=== PATIENT | female | born 1975 | race Caucasian/White ===

== ENCOUNTER 2017-09-20 09:24 | Outpatient (CLI) | payer OTHER ==
[~2017-09-20] VITALS: Ht 160 cm; Wt 71.3 kg
[2017-09-20 09:40] VITALS: BP 106/67; PULSE 83; RESP 18; Ht 160 cm; Wt 71.3 kg
[2017-09-20] MEDS ORDERED: CALC600T5 PO (09:43)
[2017-09-20] MEDS ORDERED: PREN-19 PO (09:43)
--- NOTE | 2017-09-20 10:04 | RADRPT ---
PROCEDURE: Obstetrical ultrasound for biophysical profile CLINICAL INDICATION: Biophysical profile. . TECHNIQUE: Obstetrical ultrasound of the uterus for biophysical profile. Transabdominal views are obtained. COMPARISON: None FINDINGS: Single intrauterine gestation. Presentation: Cephalic. Placenta: Anterior. No evidence of placental abruption. No evidence of placenta previa. breathing movement = 2/2 tone = 2/2 motion = 2/2 ROGER = 2/2 ROGER = 11.5 cm heart rate: 158 beats per minute IMPRESSION: Single intrauterine gestation. Biophysical profile 07/06 RPTAT: AADD .Jimbo Galindo MD, MD Date Time Electronically viewed and signed by .Jimbo Galindo MD, on 09/20/2017 10:04 .B/
--- NOTE | 2017-09-20 14:04 | TRIAGE ---
OB Triage Datetime Report Generated by CPN: 09/20/2017 14:04 Datetime: 09/20/2017 11:06 Stage of : OB Triage Datetime: 09/20/2017 10:36 Labor Evaluation Frequency: occas Monitor Mode: External Duration (sec)2399: 50-60 Quality: Mild Resting Tone Max: Relaxed Contraction Comments: denies feeling Heart Rate FHR Baseline Rate: 145 Monitor Mode: External US Variability: Moderate 6-25 bpm Accelerations: 10X10 Decelerations: None Category: Category I Pain Assessment Pain Scale: 0 Pain Presence: None/Denies Pain Type: N/A Pain Goal: 3 Pain Relief Measures: Comfort Measures Datetime: 09/20/2017 10:35 Stage of : OB Triage Datetime: 09/20/2017 10:31 Stage of : OB Triage Datetime: 09/20/2017 09:37 Stage of : OB Triage Assessment Type: Triage EGA: 38.4 Maternal Assessment Level of Consciousness: Fully Conscious DTR's/Clonus: DTRs 2+; No Clonus Headache: Denies Blurred Vision: No Respiratory Effort: Unlabored; Regular Rhythm; Equal Expansion Breath Sounds, Left: Clear and Equal Breath Sounds, Right: Clear and Equal Nausea/Vomiting: Denies RUQ Epigastric Pain: Denies Facial Edema: None Temperature Route: Axillary Fall Risk Assessment History of Falling: (0) No Secondary Diagnosis: (0) No Ambulatory Aid: (0) Bedrest/Nurse Assist IV Therapy: (0) No Gait: (0) Normal/Bedrest/Immobile Mental Status: (0) Oriented to Own Ability Fall Score: 0 Fall Risk Score Definition: No Risk: No action required Labor Evaluation Frequency: 0 Monitor Mode: External Resting Tone Max: Relaxed Heart Rate FHR Baseline Rate: 155 Monitor Mode: External US Variability: Moderate 6-25 bpm Decelerations: None Pain Assessment Pain Scale: 0 Pain Presence: None/Denies Pain Goal: 3 Pain Relief Measures: Comfort Measures Datetime: 09/20/2017 09:36 Time of Arrival: 09/20/2017 09:17 Arrived By: Ambulatory Arrived From: Home Chief Complaint: SENT FROM DR OFFICE FOR NST RE: GDM DIET CONTROLLED. DENIES UC'S, BLEEDING OR UC' S Movement: Present Contractions: Denies/Absent Rupture of Membranes: Denies Vaginal Bleeding: None Vaginal Discharge: Denies Recent Sexual Intercouse: Denies Abdominal Trauma: Not Applicable Patient Complaints: None Time Provider Notified: 09/20/2017 11:06 Provider Notified: kenneth Initial Plan: MONITOR, BPP/NST
--- NOTE | 2017-09-20 18:15 | QN ---
Documentation Comment iup 35 weeks gdm vss nst reactive a/p iup 35 weeks [facility] JERONIMO PORTILLO MD Sep 20, 2017 18:15
== END 2017-09-20 11:32 | disposition home or self-care (01) ==
LOC: L-D 09:24 → OBT 09:24
PROVIDERS: ATTEND Obstetrics & Gynecology
DX: O24.419 Gestational diabetes mellitus in pregnancy, unspecified control (principal); Z3A.35 35 weeks gestation of pregnancy
CPT/HCPCS: 76818; 82962; Z7500; G0463

== ENCOUNTER 2017-09-23 08:00 | Inpatient (IN) | payer OTHER ==
[~2017-09-23] VITALS: Ht 157.5 cm; Wt 70.5 kg
[~2017-09-23 08:00] MED LIST: CALC600T5 PO; PREN-19 PO
[2017-09-23 08:35] VITALS: BP 101/50; RESP 20
[2017-09-23] MEDS ORDERED: FER325 PO (08:41)
[2017-09-23] MEDS ORDERED: METHYLERGONOVINE 0.2 MG INJ IM PRN (09:00)
[2017-09-23] MEDS ORDERED: OXYTOCIN 30 UNITS/LR 500 ML IV SCH ×3 (09:00)
[2017-09-23] MEDS ORDERED: BUTORPHANOL 2 MG INJ IV PRN ×2 (09:00)
[2017-09-23] MEDS ORDERED: IBUPROFEN 600 MG TAB PO PRN (09:00)
[2017-09-23] MEDS ORDERED: MISOPROSTOL 200 MCG TAB PR PRN (09:00)
[2017-09-23] MEDS ORDERED: CARBOPROST 250 MCG INJ IM PRN (09:00)
[2017-09-23] MEDS ORDERED: AMPICILLIN 2 GM/NS (PMX) 100 ML IV ONE (09:00)
[2017-09-23] MEDS ORDERED: OXYTOCIN 30 UNITS/LR 500 ML IV PRN (09:00)
[2017-09-23] MEDS ORDERED: LIDOCAINE 1% (MPF) 30 ML INJ INJ PRN (09:00)
[2017-09-23 09:28] VITALS: Ht 157.5 cm; Wt 70.5 kg
[2017-09-23] MEDS: LACTATED RINGER'S 1,000 ML IV SCH ×3 (09:29→23:36)
[2017-09-23] MEDS ORDERED: LACTATED RINGER'S 1,000 ML IV PRN (10:00)
[2017-09-23] MEDS: MISOPROSTOL 25 MCG CAPSULE PO PRN ×2 (10:30→19:17)
--- NOTE | 2017-09-23 10:33 | RADRPT ---
PROCEDURE: US OB. CLINICAL INDICATION: Induction of labor, size and dates TECHNIQUE: Multiple sonographic images of the pelvis were obtained. Transabdominal imaging only w as performed. The images were reviewed on a PACS workstation. COMPARISON: Ultrasound, 09/20/2017 FINDINGS: Single intrauterine gestation. Cephalic presentation. cardiac activity was not assessed on the submitted images. Measurements were made in order to determine age. The results are as follows: BPD = 9.48 cm HC = 34.29 cm AC = 34.17 cm FL = 7.17 cm Gestational age is 38 weeks 2 days and TATI is 10/05/2017 by ultrasound criteria. EFW = 3368 g +/- 505 g (44 %). The placenta is anterior. There is no evidence for an abruption or placenta previa. IMPRESSION: 1. Single intrauterine gestation of approximately 38 weeks 2 days by ultrasound criteria, as above. 2. cardiac activity was not assessed on the submitted images. RPTAT: AAQQ .Bry Kate MD, MD Date Time Electronically viewed and signed by .Bry Kate MD, MD on 09/23/2017 10:33 .R/
[2017-09-23 11:08] LABS: BASOPHILS % 0.3 % (0.0-2.0); EOSINOPHILS % 0.7 % (0.0-7.0); HEMATOCRIT 38.2 % (37.0-47.0); HEMOGLOBIN 12.9 g/dl (12.0-16.0); LYMPHOCYTES # 1.2 10^3/ul (0.8-2.9); LYMPHOCYTES % 20.7 % (15.0-51.0); MEAN CORPUSCULAR HEMOGLOBIN 31.2 pg (29.0-33.0); MEAN CORPUSCULAR HGB CONC 33.8 g/dl (32.0-37.0); MEAN CORPUSCULAR VOLUME 92.3 fl (82.0-101.0); MEAN PLATELET VOLUME 10.1 fl (7.4-10.4); MONOCYTE # 0.5 10^3/ul (0.3-0.9); MONOCYTES % 9.2 % (0.0-11.0); NEUTROPHILS % 68.4 % (39.0-77.0); PLATELET COUNT 240 10^3/UL (140-415); RED BLOOD COUNT 4.14 10^6/ul (4.20-5.40); RED CELL DISTRIBUTION WIDTH 12.8 % (11.5-14.5); WHITE BLOOD COUNT 5.9 10^3/ul (4.8-10.8)
[2017-09-23 11:26] LABS: INR 0.91; PARTIAL THROMBOPLASTIN TIME 27.8 Sec (25.0-35.0); PROTIME 12.2 Sec (12.2-14.2)
[2017-09-23] MEDS ORDERED: MINERAL OIL LIGHT 10 ML VIAL TOP PRN (12:30)
[2017-09-23] MEDS: AMPICILLIN 1 GM/NS (PMX) 50 ML IV SCH ×3 (12:36→21:01)
--- NOTE | 2017-09-23 21:50 | RADRPT ---
PROCEDURE: OB ultrasound CLINICAL INDICATION: . OB ultrasound with evaluation of position TECHNIQUE: Transabdominal sonographic images of the uterus obtained after first trimester, greater than 14 weeks gestation. Single intrauterine gestation present. Evaluation for positi on. COMPARISON: 09/23/2017 FINDINGS: Placenta: anterior without evidence of abruption or previa heart rate: 142 Beats per minute. IMPRESSION: Presentation: Cephalic RPTAT: AADD .Jimbo Galindo MD, MD Date Time Electronically viewed and signed by .Jimbo Galindo MD, MD on 09/23/2017 21:50 .B/
[2017-09-23] MEDS ORDERED: CEFAZOLIN 2 GM/50 ML (PMX) 50 ML IVPB SCH (22:00)
[2017-09-23] MEDS ORDERED: METOCLOPRAMIDE 10 MG INJ IV ONE (23:30)
[2017-09-23] MEDS ORDERED: CITRIC ACID/SODIUM CITRATE 15 ML CUP PO ONE (23:30)
[2017-09-23] MEDS ORDERED: FAMOTIDINE 20 MG INJ IV ONE (23:30)
[2017-09-24] VITALS (7 sets, daily range): BP systolic 94–113; BP diastolic 43–58; PULSE 66–86; RESP 18–21
[2017-09-24] MEDS ORDERED: MISOPROSTOL 200 MCG TAB PR PRN
[2017-09-24] MEDS ORDERED: LANOLIN 7 GM TUBE TOP PRN
[2017-09-24] MEDS ORDERED: METHYLERGONOVINE 0.2 MG TAB PO PRN
[2017-09-24] MEDS ORDERED: METHYLERGONOVINE 0.2 MG INJ IM PRN
[2017-09-24] MEDS ORDERED: OXYTOCIN 30 UNITS/LR 500 ML IV PRN
[2017-09-24] MEDS ORDERED: NA PHOSPHATE/BIPHOS 133 ML ENEMA PR PRN
[2017-09-24] MEDS ORDERED: CARBOPROST 250 MCG INJ IM PRN
--- NOTE | 2017-09-24 00:16 | SIPON ---
Date/Time of Note Date/Time of Note DATE: 09/24/17 TIME: 00:14 Operative Report Preoperative Diagnosis 39 weeks GDM A1 Variable decelerations Diagonal lie Multiparity GBS positive Postoperative Diagnosis Same Operation/Procedure Performed Primary low segment transverse Bilateral salpingectomy Surgeon see signature line assistant principal Dr. Buchanan Anesthesia: spinal Estimated blood loss: other Transfusion Required none Specimen Placenta Grafts/Implants none Complications none LORRIE COLE MD Sep 24, 2017 00:16
[2017-09-24] MEDS ORDERED: FENTAnyl 50 MCG/ML VIAL ONE (00:19)
[2017-09-24] MEDS ORDERED: morphine SULFATE/PF (10 MG/10 ML) INJ ONE (00:20)
[2017-09-24] MEDS ORDERED: ONDANSETRON 4 MG INJ IV PRN ×2 (00:30→02:00)
[2017-09-24] MEDS ORDERED: KETOROLAC 30 MG INJ IV SCH (00:30)
[2017-09-24] MEDS ORDERED: DEXAMETHASONE 4 MG/ML 1 ML INJ ONE (00:35)
[2017-09-24] MEDS ORDERED: PHENYLephrine (100 MCG/ML) 5ML SYG ONE ×2 (01:01→01:16)
--- NOTE | 2017-09-24 01:01 | PREOPHP ---
DATE OF ADMISSION: 09/23/2017 The patient was admitted on 09/23/2017 for induction. HISTORY OF PRESENT ILLNESS: This is a 41-year-old female 3, para 1, abortions 1. The patie nt with an EDC of 09/30/2017. This patient had a previous vaginal delivery in 2010. She developed gestational diabetes in for which I was evaluating her and was referring her to the [facility] to[facility]. She was coming for NSTs and BPPs weekly. The patient was controlled with diet alone, and her blood sugars were mostly hypoglycemic all the time. She was being instructed very strictly on taking many snacks due to hypoglycemia. The patient has been admitted at 39 weeks for induction of labor due to gestational diabetes, diet controlled. She had a history of GBS positive, and she was also signing papers for tubal ligation. This patient had no other problems during the , an d she was admitted today for induction of labor. The presentation was diagonal. Two ultrasounds we re done showing the head down but with a diagonal direction where the head was in the right lower qu adrant. The patient was induced with p.o. Cytotec, and she was kimberly frequently and hea rt tone with variable decelerations were observed during the day and got better, and they started be ing more frequent at this time with loss of sigr-pa-fkfe variability. The patient's pelvic examinat ion did not change during the day even though she was having very frequent contractions which she di d not feel. The presentation was really not even palpable doing the vaginal examination, and she wa s advised for a primary section due to an oblique presentation of the head with varia ble decelerations. During her , the baby was breech presentation most of the time. PAST MEDICAL HISTORY: Healthy. SHE HAD NO ALLERGIES. She had no surgical or medical antecedents. FAMILY HISTORY: Her mother was diabetic and her mother had cancer and multiple births. SOCIAL HISTORY: The patient has no history of smoking, alcohol or drug addiction. PHYSICAL EXAMINATION: VITAL SIGNS: She is 5 feet 2. She started with a weight of 136. At this time, she is 153. The pu lse is 80, respirations 16. Her blood pressure is 90/60. HEAD AND NECK: Normal. CHEST: Clear. HEART: Normal sinus rhythm. LUNGS: Clear. BREASTS: Soft, nontender, no masses. ABDOMEN: Soft with contractions every 2 to 3 minutes and with a diagonal lie with the head of the b alanna being in the right lower quadrant. PELVIC: Closed cervix with 50% effacement, membranes intact and the head of the baby is absolutely nonpalpable nearby. The head is felt in the right lower quadrant. EXTREMITIES: Normal with normal pulses. No edema. Normal reflexes. DIAGNOSES: A 39-week , diagonal lie, variable decelerations, gestational diabetes diet con trolled, group B strep positive and multiparity. PLAN: She is undergoing a primary section and tubal ligation. She was offered a salpingec osorio versus a partial salpingectomy, and she decided to have a complete bilateral salpingectomy. Nabil chandra was advised of the possible risks and possible complications of the procedure with her alternative s and options. Written information was provided. She had no more questions and agreed to go ahead with the procedure with full understanding and no more questions. Dictated By: LORRIE GONZALEZ/SHRAVAN Conf#: [id number] DID#: [id number]
[2017-09-24] MEDS ORDERED: ZOLPIDEM 5 MG TAB PO PRN (02:00)
[2017-09-24] MEDS ORDERED: DIPHENHYDRAMINE 50 MG INJ IV PRN (02:00)
[2017-09-24] MEDS ORDERED: NALOXONE (0.4 MG/ML) INJ IV PRN (02:00)
[2017-09-24] MEDS ORDERED: KETOROLAC 30 MG INJ IV PRN (02:00)
[2017-09-24] MEDS ORDERED: NALBUPHINE HCL (10 MG/1 ML) INJ IV PRN (02:00)
[2017-09-24] MEDS ORDERED: HYDROmorphONE 0.5 MG/0.5 ML SYG IV PRN ×2 (02:00)
--- NOTE | 2017-09-24 02:41 | OPR ---
DATE OF OPERATION: 09/24/2017 PROCEDURE: Primary low segment transverse section. PREOPERATIVE DIAGNOSES: A 39 weeks , gestational diabetes mellitus A1, variable decelerati ons, diagonal lie, multiparity, group B streptococcus positive. OPERATION PERFORMED: Primary low segment transverse section and bilateral salpingectomy. SURGEON: Lorrie Luna MD BOBCAT DRIVER/LABOR: Jose Buchanan MD ANESTHESIOLOGIST: Dr. Berger. ANESTHESIA: Spinal. DESCRIPTION PROCEDURE: The patient was given spinal anesthesia, placed in the supine position. The abdomen was prepped and draped and a Davenport catheter was placed in the bladder. A transverse incisi on was made suprapubically over the midline for about 10 cm in length. The abdomen was opened in la yers without difficulties. The abdominal cavity was reached. The lower uterine segment was identif ied. The Adrian retractor was placed and the bladder flap was made. The uterus was opened in the m idline with a scalpel and the incision was increased laterally on either side for about 3 inches. T he baby's head was delivered after the incision was made and increased laterally on either side for about 3 inches. The baby was suctioned and the cord was clamped and cut. The baby was handed over to the crown ironer operator team. The cord blood was obtained. The placenta was removed. The uterus was swabbed out and closed in 2 layers using #1 Monocryl continuous suture imbedding the first line of s uture and hemostasis was good. Both tubes were removed by applying a ____ from the fimbriated end, all the way up to about 2 cm from the isthmic portion of the tube. The tube was removed and the sut ure was done by a jojknl-bu-munct suture with a 2-0 Vicryl and reinforcement with the same 2-0 Vicry l. This was done in both sides. Both ovaries were normal. The uterus was normal. The abdominal c avity was cleaned out and a piece of Interceed was left on the area of the for prevention of adhesions. The cavity was closed after the sponge counts and instrument counts were correct with a 2-0 Vicryl suture for peritoneum, #0 PDS looped suture for the fascia, 2-0 Vicryl for the subcuta neous tissue, and 3-0 Monocryl subcuticular to the skin. Steri-Strips and Dermabond were used. The patient tolerated the procedure well and left the OR awake and stable. Sponge counts and instrumen t counts were correct and intravenous antibiotics were given for prophylaxis. Dictated By: LORRIE GONZALEZ/SHRAVAN Conf#: [id number] DID#: [id number]
[2017-09-24] MEDS: OXYTOCIN 30 UNITS/LR 500 ML IV SCH (04:00)
[2017-09-24] MEDS: METOCLOPRAMIDE 10 MG TAB PO SCH ×3 (05:34→17:32)
[2017-09-24] MEDS ORDERED: ACCU-CHEK XX SCH (06:00)
[2017-09-24] MEDS: CEFAZOLIN 2 GM/50 ML (PMX) 50 ML IVPB SCH ×3 (06:37→23:05)
[2017-09-24] MEDS: LACTATED RINGER'S 1,000 ML IV SCH ×6 (06:58→22:58)
[2017-09-24] MEDS: ACCU-CHEK XX SCH ×4 (08:25→20:43)
[2017-09-24] MEDS: SENNA/DOCUSATE NA (8.6MG/50MG) TAB PO SCH ×2 (09:00→20:38)
--- NOTE | 2017-09-24 13:47 | PN ---
Date/Time of Note Date/Time of Note DATE: 09/24/17 TIME: 13:46 Assessment/Plan Lines/Catheters IV Catheter Type (from Nrsg): Peripheral IV Subjective 24 Hr Interval Summary Afebrile, feeling good and stable. incision dry. uterus contracted .lochia normal Constitutional: BM, ambulates, flatus, improved, no complaints, urine output Feeding: advancing diet Pain Control: well controlled Detailed Summary Eyes: no complaints ENT: no complaints Respiratory: no complaints Cardiovascular: no complaints Gastrointestinal: no complaints Genitourinary: no complaints Musculoskeletal: no complaints Skin: no complaints Neurologic: no complaints Endocrine: no complaints Lymphatic: no complaints Psychological: nl mood/affect, no complaints Immunologic: no complaints Exam/Review of Systems Vital Signs Vitals Vital Signs Date Time Temp Pulse Resp B/P Pulse Ox O2 Delivery O2 Flow Rate FiO2 09/24/17 12:00 98.9 79 18 94/55 Room Air 09/24/17 03:15 98 Intake and Output 09/23/17 09/23/17 09/24/17 15:00 23:00 07:00 Intake Total 650 ml 350 ml 1825 ml Output Total 900 ml 900 ml 950 ml Balance -250 ml -550 ml 875 ml Exam Constitutional: alert, oriented, well developed Psych: nl mood/affect, no complaints Head: atraumatic, normocephalic Eyes: EOMI, nl conjunctiva, nl lids, nl sclera ENMT: mucosa pink and moist, nl external ears & nose, nl lips & teeth, nl nasal mucosa & septum Neck: non-tender, supple Respiratory: clear to auscultation, normal air movement Cardiovascular: nl pulses, regular rate and rhythm Gastrointestinal: nl liver, spleen, non-tender, soft Musculoskeletal: nl extremities to inspection, nl gait and stance Extremities: normal pulses Neurological: DINKEY ENGINE OPERATOR II-XII intact, nl mental status, nl speech, nl strength Skin: nl turgor, rash or lesions Lymph: nl lymph nodes Results Result Diagram: 09/23/17 0910 LORRIE COLE MD Sep 24, 2017 13:47
[2017-09-24] MEDS ORDERED: BISACODYL (EC) 5 MG TAB PO ONE (14:00)
[2017-09-24] MEDS: KETOROLAC 30 MG INJ IV SCH ×2 (17:31→23:45)
[2017-09-24 23:31] LABS: BASOPHILS % 0.2 % (0.0-2.0); EOSINOPHILS % 0.1 % (0.0-7.0); HEMOGLOBIN 12.7 g/dl (12.0-16.0); LYMPHOCYTES # 0.7 10^3/ul (0.8-2.9); LYMPHOCYTES % 5.9 % (15.0-51.0); MEAN CORPUSCULAR HEMOGLOBIN 31.9 pg (29.0-33.0); MEAN CORPUSCULAR HGB CONC 34.3 g/dl (32.0-37.0); MEAN PLATELET VOLUME 9.6 fl (7.4-10.4); MONOCYTES % 7.8 % (0.0-11.0); NEUTROPHIL # 10.6 10^3/ul (1.6-7.5); NEUTROPHILS % 85.5 % (39.0-77.0); PLATELET COUNT 244 10^3/UL (140-415); RED BLOOD COUNT 3.98 10^6/ul (4.20-5.40); RED CELL DISTRIBUTION WIDTH 12.7 % (11.5-14.5); WHITE BLOOD COUNT 12.4 10^3/ul (4.8-10.8)
[2017-09-25] MEDS: LACTATED RINGER'S 1,000 ML IV SCH
[2017-09-25] MEDS: METOCLOPRAMIDE 10 MG TAB PO SCH ×5 (02:11→23:46)
[2017-09-25 04:00] VITALS: BP 106/57; PULSE 72; RESP 18
[2017-09-25] MEDS: HYDROCODONE/APAP (5/325) TAB PO PRN ×4 (04:52→23:47)
--- NOTE | 2017-09-25 06:41 | PN ---
Date/Time of Note Date/Time of Note DATE: 09/25/17 TIME: 06:39 Assessment/Plan Lines/Catheters IV Catheter Type (from Nrs): Peripheral IV Subjective 24 Hr Interval Summary Feels good Afebrile Breast-feeding Uterus contracted Incision dry Lochia normal Constitutional: BM, ambulates, flatus, improved, no complaints, urine output Feeding: advancing diet Detailed Summary Eyes: no complaints ENT: no complaints Respiratory: no complaints Cardiovascular: no complaints Gastrointestinal: no complaints Genitourinary: no complaints Musculoskeletal: no complaints Skin: no complaints Neurologic: no complaints Endocrine: no complaints Lymphatic: no complaints Psychological: nl mood/affect, no complaints Immunologic: no complaints Exam/Review of Systems Vital Signs Vitals Vital Signs Date Time Temp Pulse Resp B/P Pulse Ox O2 Delivery O2 Flow Rate FiO2 09/25/17 04:00 98.4 72 18 106/57 Room Air 09/24/17 03:15 98 Intake and Output 09/24/17 09/24/17 09/25/17 15:00 23:00 07:00 Intake Total 1305 ml 735 ml 1050 ml Output Total 3000 ml 1700 ml 800 ml Balance -1695 ml -965 ml 250 ml Exam Constitutional: alert, oriented, well developed Psych: nl mood/affect, no complaints Head: atraumatic, normocephalic Eyes: EOMI, nl conjunctiva, nl lids, nl sclera ENMT: mucosa pink and moist, nl external ears & nose, nl lips & teeth, nl nasal mucosa & septum Neck: non-tender, supple Respiratory: clear to auscultation, normal air movement Cardiovascular: nl pulses, regular rate and rhythm Gastrointestinal: nl liver, spleen, non-tender, soft Musculoskeletal: nl extremities to inspection, nl gait and stance Extremities: normal pulses Neurological: DIRECTOR HRIS II-XII intact, nl mental status, nl speech, nl strength Skin: nl turgor, rash or lesions Lymph: nl lymph nodes Results Result Diagram: 09/24/17 2304 LORRIE COLE MD Sep 25, 2017 06:41
[2017-09-25 08:00] VITALS: BP 101/51; PULSE 74; RESP 18
[2017-09-25] MEDS: ACCU-CHEK XX SCH ×4 (08:43→20:43)
[2017-09-25] MEDS ORDERED: INFLUENZA VIRUS VACCINE 0.5 ML SYG IM* ONE (09:00)
[2017-09-25] MEDS: SENNA/DOCUSATE NA (8.6MG/50MG) TAB PO SCH ×2 (09:00→21:00)
[2017-09-25 16:00] VITALS: BP 104/59; PULSE 86; RESP 18
[2017-09-25 20:00] VITALS: BP 108/76; PULSE 96; RESP 20
[2017-09-25] MEDS: IBUPROFEN 800 MG TAB PO SCH (21:46)
[2017-09-26 03:20] VITALS: BP 115/65; PULSE 72; RESP 20
[2017-09-26] MEDS: METOCLOPRAMIDE 10 MG TAB PO SCH ×4 (05:15→23:28)
[2017-09-26] MEDS: HYDROCODONE/APAP (5/325) TAB PO PRN ×3 (05:15→23:28)
[2017-09-26] MEDS: IBUPROFEN 800 MG TAB PO SCH ×3 (05:15→21:03)
[2017-09-26 07:03] LABS: BASOPHILS % 0.3 % (0.0-2.0); EOSINOPHILS # 0.1 10^3/ul (0.0-0.5); EOSINOPHILS % 0.5 % (0.0-7.0); HEMATOCRIT 34.8 % (37.0-47.0); HEMOGLOBIN 11.6 g/dl (12.0-16.0); LYMPHOCYTES % 8.8 % (15.0-51.0); MEAN CORPUSCULAR HGB CONC 33.3 g/dl (32.0-37.0); MEAN PLATELET VOLUME 9.4 fl (7.4-10.4); MONOCYTE # 0.7 10^3/ul (0.3-0.9); MONOCYTES % 5.6 % (0.0-11.0); NEUTROPHIL # 9.7 10^3/ul (1.6-7.5); NEUTROPHILS % 84.2 % (39.0-77.0); PLATELET COUNT 264 10^3/UL (140-415); RED BLOOD COUNT 3.74 10^6/ul (4.20-5.40); RED CELL DISTRIBUTION WIDTH 12.9 % (11.5-14.5); WHITE BLOOD COUNT 11.6 10^3/ul (4.8-10.8)
[2017-09-26] MEDS: ACCU-CHEK XX SCH ×3 (08:25→15:37)
[2017-09-26] MEDS: SENNA/DOCUSATE NA (8.6MG/50MG) TAB PO SCH ×2 (09:00→21:00)
--- NOTE | 2017-09-26 11:38 | QN ---
Documentation Comment pod2 pt doing well vss exam wln a/p pod 2 continue care JERONIMO PORTILLO MD Sep 26, 2017 11:38
[2017-09-26 16:30] VITALS: BP 100/54; PULSE 85; RESP 18
[2017-09-26 20:00] VITALS: BP 115/56; PULSE 79; RESP 18
[2017-09-27 04:00] VITALS: BP 108/65; PULSE 70; RESP 19
[2017-09-27] MEDS: METOCLOPRAMIDE 10 MG TAB PO SCH ×3 (05:59→17:55)
[2017-09-27] MEDS: IBUPROFEN 800 MG TAB PO SCH ×2 (05:59→15:36)
[2017-09-27 08:00] VITALS: BP 103/61; PULSE 69; RESP 18
[2017-09-27] MEDS ORDERED: DIPHTH/TET/ACEL PERTUSS (ADULT) 0.5 ML VIAL IM* ONE (09:00)
[2017-09-27] MEDS ORDERED: MEASLES,MUMPS,RUBELLA VACCINE INJ SC* ONE (09:00)
--- NOTE | 2017-09-27 09:51 | PD.PPDC ---
SUPERINTENDENT CAR CONSTRUCTION Discharge Instruction Condition Patient Condition: Good Activity/Restrictions Activity: Normal Activity May Shower Restrictions: No Exercising No Lifting No Driving No Sexual Activity Nothing in the Vagina No [place] No Tampons, douche Wound/Drain Care Instructions Wound/Drain Care Instructions: Remove Steri Strips in 1 week Wash with soap and water Keep clean and dry Follow-up Follow-up with Physician: 2, Week/Weeks Return to clinic for SUSPECT ARTIST SUPERVISOR Instructions: Fever greater than 101 Chills Worsening abdominal pain Excessive Vaginal Bleeding More than 2 pads per hour Unable to tolerate diet OB Instructions: Breast Tenderness Depression Blurried Vision Headache Surgical Instructions: Incisional Drainage Incisional Redness LORRIE COLE MD Sep 27, 2017 09:51
[2017-09-27] MEDS: SENNA/DOCUSATE NA (8.6MG/50MG) TAB PO SCH (09:55)
[2017-09-27] MEDS: HYDROCODONE/APAP (5/325) TAB PO PRN ×2 (10:02→17:54)
--- NOTE | 2017-09-27 10:54 | DS ---
DATE OF ADMISSION: 09/23/2017 DATE OF DISCHARGE: 09/27/2017 ADMITTING DIAGNOSES: 1. A 39 weeks weeks' . 2. Gestational diabetes. 3. Multiparity. PROCEDURES DONE: Primary low segment transverse section, bilateral salpingectomy. HISTORY: This is a 41-year-old female, 3, para 1 with an EDC of 09/30/2017. This patient h ad a previous vaginal delivery in 2010. She developed gestational diabetes in , which was controlled with diet alone and she was followed closely with NSTs and BPPs. She was instructed to c ome for induction of labor since she was mostly hypoglycemic all the time in spite of her instructio ns in diet. The patient was in and she was kimberly very well and she could dilate to 10 c m with a head that was very high up in the pelvis in an oblique presentation. The patient had varia ble decelerations and no descent of the presentation, for which reason she was offered a w hich was done along with a tubal ligation. Salpingectomy was decided by the patient, so she did not want to have the possibility of ectopic or need for reconstruction since she was at the [facility] where she did not want more children. She did well after surgery. Her laboratory testing revealed a hemoglobin of 11.6, hematocrit 34.8, and white count that was near normal. She was very good after surgery with ambulating, eating well with bowel movements, with a clean incision, afebrile and stable, and her vital signs and with and a mbulatory with pain control on oral medications. She did very well and she has been discharged on T ylenol No. 3 and/or [place] p.r.n. and ibuprofen p.r.n. She was given further instructions of what to do and not to do at home, to see me in the office in a week or earlier if she had any problems. Nabil artis was discharged stable in good condition and to see me in the office in a week or 10 days. Dictated By: LORRIE GONZALEZ/SHRAVAN Conf#: [id number] DID#: [id number]
[2017-09-27 16:00] VITALS: BP 119/68; PULSE 82; RESP 18
== END 2017-09-27 18:40 | disposition home or self-care (01) | DRG 766 ==
LOC: EDUNIT# 08:00 → L-D 08:17 → PP1 09-24 04:14
PROVIDERS: ADMIT Obstetrics & Gynecology; ATTEND Obstetrics & Gynecology
PROC: 0UT70ZZ Resection of Bilateral Fallopian Tubes, Open Approach (ICD-10-PCS; 2017-09-24)
PROC: 10D00Z1 Extraction of Products of Conception, Low, Open Approach (ICD-10-PCS; principal; 2017-09-24 00:30)
DX: O76 Abnormality in fetal heart rate and rhythm complicating labor and delivery (principal); O24.420 Gestational diabetes mellitus in childbirth, diet controlled; O32.2XX0 Maternal care for transverse and oblique lie, not applicable or unspecified; Z3A.39 39 weeks gestation of pregnancy; Z37.0 Single live birth; Z30.2 Encounter for sterilization
CPT/HCPCS: 76815; 76816; 82962; 85025; 85610; 85730; 86592; 86900; 86901; 87340; 88302; 90686; 90715; 99464; J0290; J0690; J1100; J1885; J2274; J2370; J2405; J2590; J2765; J3010; J7120